=== PATIENT | male | born 1975 | race Hispanic/Latino ===

== ENCOUNTER 2017-02-14 01:11 | Emergency (ER) | payer OTHER, SELFPAY ==
[2017-02-14] MEDS ORDERED: Silver Sulfadiazine 1% Cream 50 GM JAR ONE (03:25)
[2017-02-14] MEDS ORDERED: Ibuprofen 800 MG TAB ONE (03:31)
== END 2017-02-14 04:02 | disposition home or self-care (01) ==
LOC: ERS 01:11
DX: T22.212A Burn of second degree of left forearm, initial encounter (principal); T23.102A Burn of first degree of left hand, unspecified site, initial encounter; E11.9 Type 2 diabetes mellitus without complications; I10 Essential (primary) hypertension; F17.210 Nicotine dependence, cigarettes, uncomplicated; X08.8XXA Exposure to other specified smoke, fire and flames, initial encounter
CPT/HCPCS: 99406

== ENCOUNTER 2019-12-25 17:30 | Emergency (ER) | payer SELFPAY ==
[2019-12-25 17:57] LABS: #Basophils 0.1 thou/uL (0.0-0.2); #Eosinphils 0.2 thou/uL (0.0-0.7); #Lymphocytes 2.8 thou/uL (1.20-3.40); #Monocytes 0.6 thou/uL (0.11-0.59); #Neutrophils 5.1 thou/uL (1.40-6.50); %Basophils 0.9 % (0.0-1.0); %Eosinophils 2.4 % (0.0-10.0); %Lymphocytes 31.6 % (21.0-51.0); %Monocytes 7.2 % (0.0-10.0); %Neutrophils 57.9 % (42.0-75.0); Hemoglobin 15.2 g/dL (14.0-18.0); Mean Corpuscular HGB CONC 35.7 g/dL (32.0-36.0); Mean Corpuscular Hemoglobin 31.4 pg (27.0-31.0); Mean Corpuscular Volume 88.1 fL (78.0-98.0); Mean Platelet Volume 7.7 fL (7.4-10.4); Platelet Count 255 thou/uL (130-400); RBC Distribution Width 12.1 % (11.5-14.5); Red Blood Cell (RBC) Count 4.83 mill/uL (4.70-6.10); White Blood Cell (WBC) Count 8.8 thou/uL (4.8-10.8)
[2019-12-25 18:14] LABS: ALT (SGPT) 41 U/L (8-55); AST (SGOT) 18 U/L (5-34); Albumin 4.3 g/dL (3.5-5.0); Alkaline Phosphatase 76 U/L (40-110); Anion Gap 14 mmol/L (10-20); BUN (Urea Nitrogen) 15 mg/dL (8.9-20.6); Bilirubin, Total 0.2 mg/dL (0.2-1.2); CK (CPK) 110 U/L (30-200); Calc. Creatinine Clearance 0 mL/min (70-130); Calcium 9.3 mg/dL (7.8-10.44); Carbon Dioxide 23 mmol/L (22-29); Chloride 106 mmol/L (98-107); Estimated GFR-MDRD 77; Globulin 3.3 g/dL (2.4-3.5); Glucose 169 mg/dL (70-105); Potassium 3.9 mmol/L (3.5-5.1); Protein, Total 7.6 g/dL (6.0-8.3); Sodium 139 mmol/L (136-145)
--- NOTE | 2019-12-25 18:16 | RAD ---
SINGLE VIEW OF THE CHEST: 12/25/19 HISTORY: Intermittent chest pain and palpitations for one week. FINDINGS: Single view of the chest shows a normal sized cardiomediastinal silhouette. There is no evidence of c onsolidation, mass, or pleural effusion. The bones are unremarkable. IMPRESSION: No evidence of acute cardiopulmonary disease. POS: EAA
[2019-12-25] MEDS ORDERED: Aspirin 325 MG TAB ONE (19:13)
[2019-12-25] MEDS ORDERED: Insulin Regular 300 UNITS/3 ML VIAL SC PRN ×2 (19:53)
[2019-12-25] MEDS ORDERED: Nitroglycerin 0.4 MG TAB (25 Tab Bottle) SL PRN (19:53)
[2019-12-25] MEDS ORDERED: Dextrose 5% in Water 1,000 ML IV PRN (19:53)
[2019-12-25] MEDS ORDERED: Dextrose 50% Abboject 50 ML SYRINGE SLOW IVP PRN (19:53)
[2019-12-25] MEDS ORDERED: Acetaminophen 325 MG TAB PO PRN (19:55)
[2019-12-25] MEDS ORDERED: Ondansetron PF 4 MG/2 ML Vial IVP PRN (19:55)
[2019-12-25] MEDS ORDERED: Calcium Carbonate 500 MG ChewTAB PO PRN (19:55)
[2019-12-25] MEDS ORDERED: Ondansetron ODT 4 MG TAB PO PRN (19:55)
[2019-12-25] MEDS ORDERED: Senokot S 8.6-50 MG TAB PO PRN (19:55)
--- NOTE | 2019-12-25 20:53 | HP ---
PRIMARY CARE PHYSICIAN: [facility]. CHIEF COMPLAINT: Chest discomfort. HISTORY OF PRESENT ILLNESS: The patient is a 43-year-old male with the long history of tobacco smoking as well as diabetes mellitus type 2, presented to the emergency room with chest discomfort that has been intermittent over the last 1 week. The chest pain lasts approximately for up to 5 minutes. He denies any aggravating or relieving factor. He denies any associated nausea, vomiting, diaphoresis, or syncope. No recent immobilization, travel, or lower extremity edema reported. Functionally, he is very active. No fever, chills, or sick contacts reported. In the emergency room, his initial vital signs showed temperature 98.8 with respirations of 18, pulse rate of 88 with a blood pressure of 132/80, with O2 saturation 99% on room air. His EKG showed sinus rhythm with nonspecific ST-T wave changes. He received aspirin in the emergency room. PAST MEDICAL HISTORY: 1. Hypertension. 2. Diabetes mellitus, type 2. 3. Tobacco dependence. PAST SURGICAL HISTORY: Left shoulder surgery. ALLERGIES: THE PATIENT DRINKS ALCOHOL SOCIALLY. SMOKES HEAVILY ON A DAILY BASIS. DENIES ANY DRUG ABUSE. FAMILY HISTORY: Negative for premature coronary artery disease. REVIEW OF SYSTEMS: All other review of systems reviewed and were found negative. PHYSICAL EXAMINATION: VITAL SIGNS: As discussed above. GENERAL: A 43-year-old male, in no apparent distress. Denies any chest discomfort at this time. HEENT: Head, atraumatic and normocephalic. Sclerae anicteric. Moist mucous membranes. No oral lesion. NECK: Supple. No JVD appreciated. No carotid bruit. LUNGS: Clear to auscultation bilaterally. No wheezing, rales, or rhonchi. HEART: S1, S2 present. Regular rate and rhythm. No reproducible chest wall tenderness. No heaves or pulsation. ABDOMEN: Soft, nontender. Bowel sounds present. EXTREMITIES: No edema or calf tenderness. NEUROLOGIC: Grossly nonfocal. Moves all 4 extremities. PSYCHIATRY: Alert, awake, and oriented x3. SKIN: Warm and dry. LYMPH NODES: No palpable lymph nodes in the neck. PERIPHERAL/VASCULAR: Radial pulses palpable bilaterally. MUSCULOSKELETAL: No joint swelling or tenderness. LABORATORY FINDINGS: CBC showed WBC 8.8 with hemoglobin 15.2, hematocrit 42.5, platelets of 255. Chemistry showed sodium 139, potassium 3.9, chloride 106, bicarb 23, BUN 15, creatinine 1.04. LFTs in normal range. Glucose 169. Troponin was negative. EKG by my review as discussed above. Chest x-ray by my review was negative for infiltrate. IMPRESSION: 1. Chest discomfort, rule out acute coronary syndrome. 2. Diabetes mellitus, type 2. 3. Chronic kidney disease, stage 2. 4. Hypertension. PLAN: The patient will be monitored in the telemetry unit. The patient has multiple risk factors for coronary artery disease. Due to intermediate probability for coronary artery disease, we will schedule exercise Cardiolite stress test in a.m. We will start him on aspirin. We will follow troponins. We will keep him n.p.o. past midnight. Lifestyle modification was emphasized including tobacco cessation. The patient understands the above plan of care. We will also start him on sliding scale. Job ID: [id number]
[2019-12-25] MEDS ORDERED: Famotidine 20 MG TAB PO SCH (21:00)
[2019-12-26] MEDS ORDERED: Aspirin 325 mg Enteric Coated Tablet PO SCH (09:00)
== END 2019-12-25 20:39 | disposition left against medical advice (07) ==
LOC: ERS 17:30
DX: I24.9 Acute ischemic heart disease, unspecified (principal); E11.9 Type 2 diabetes mellitus without complications; I10 Essential (primary) hypertension; F17.210 Nicotine dependence, cigarettes, uncomplicated; Z79.84 Long term (current) use of oral hypoglycemic drugs
CPT/HCPCS: 71045; 80053; 82550; 84484; 85025; 93005